=== PATIENT | female | born 1955 | race Caucasian/White ===

== ENCOUNTER 2022-08-11 08:26 | Emergency (ER) | payer MEDICARE ==
[2022-08-11] MEDS ORDERED: Ondansetron PF 4 MG/2 ML Vial ONE (08:51)
[2022-08-11] MEDS ORDERED: Meclizine HCl 25 MG TAB ONE (09:15)
[2022-08-11] MEDS ORDERED: Acetaminophen 500 MG TAB ONE (09:15)
== END 2022-08-11 10:26 | disposition home or self-care (01) ==
LOC: NAV ERS 08:26
DX: S00.03XA Contusion of scalp, initial encounter (principal); H81.399 Other peripheral vertigo, unspecified ear; E03.9 Hypothyroidism, unspecified; E11.9 Type 2 diabetes mellitus without complications; K21.9 Gastro-esophageal reflux disease without esophagitis; E78.00 Pure hypercholesterolemia, unspecified; I10 Essential (primary) hypertension; W22.8XXA Striking against or struck by other objects, initial encounter; Z79.899 Other long term (current) drug therapy; Z79.84 Long term (current) use of oral hypoglycemic drugs
CPT/HCPCS: 70450; 96374; J2405